=== PATIENT | female | born 1985 | race Caucasian/White ===

== ENCOUNTER → 2018-09-14 | Outpatient (CLI) | payer BC ==
[~2018-09-14] MED LIST: BENICAR HCT 251 TAB PO; CELEXA 20MG20 MG/TAB PO; YAZ 28 3 MG-0.01 TAB PO
== END ==
LOC: COL.RAD 08:09
DX: R11.0 Nausea (principal)

== ENCOUNTER → 2018-09-24 | Outpatient (CLI) | payer BC | LOC: COL.RAD 06:35 | DX: R11.0 Nausea (principal) | CPT/HCPCS: A9537 ==